=== PATIENT | male | born 1985 | race Caucasian/White ===

== ENCOUNTER 2022-01-11 21:08 | Outpatient (REF) | payer BC, SELFPAY | END 2022-01-11 21:09 | disposition home or self-care (01) | LOC: LBN 21:08 | PROVIDERS: Visit Provider Nurse Practitioner Family | DX: J02.9 Acute pharyngitis, unspecified (principal) | CPT/HCPCS: 87077; 87070 ==

== ENCOUNTER 2022-02-07 17:02 | Outpatient (REF) | payer BC, SELFPAY | END 2022-02-07 17:03 | disposition home or self-care (01) | LOC: LBN 17:02 | PROVIDERS: Visit Provider Physician Assistant | DX: J02.9 Acute pharyngitis, unspecified (principal) | CPT/HCPCS: 87070 ==

== ENCOUNTER 2023-10-16 22:08 | Outpatient (REF) | payer BC, SELFPAY ==
[2023-10-16 21:50] LABS: Hemoglobin A1C 5.6 % (<5.7)
[2023-10-16 22:01] LABS: ALT 52 U/L (16-63); AST 21 U/L (15-37); Albumin 4.3 g/dL (3.4-5.0); Alkaline Phosphatase 68 U/L (46-116); Anion Gap 6.9 mmol/L (3-11); BUN 13 mg/dL (7-18); Bilirubin, Total 0.63 mg/dL (0.2-1.0); CO2 32.1 mmol/L (21.0-32.0); Calcium 9.5 mg/dL (8.5-10.1); Calculated LDL 89 mg/dL (<100); Chloride 103 mmol/L (98-107); Cholesterol 151 mg/dL (<200); Glucose 94 mg/dL (74-106); HDL Cholesterol 40 mg/dL (40-60); Potassium 3.8 mmol/L (3.5-5.1); Sodium 142 mmol/L (136-145); Total Protein 7.3 g/dL (6.4-8.2); Triglyceride 111 mg/dL (<150)
[2023-10-19 15:57] LABS: Lipoprotein (a) 241 nmol/L (<75)
== END 2023-10-16 22:09 | disposition home or self-care (01) ==
LOC: NCHCN 22:08
PROVIDERS: Visit Provider Family Medicine
DX: R73.03 Prediabetes (principal); E78.5 Hyperlipidemia, unspecified
CPT/HCPCS: 80053; 80061; 83695; 83036

== ENCOUNTER 2024-01-11 13:01 | Outpatient (REF) | payer BC, SELFPAY ==
[2024-01-11 15:31] LABS: LDL CHOLESTEROL 65 mg/dL (<100)
== END 2024-01-11 13:02 | disposition home or self-care (01) ==
LOC: NCHCN 13:01
PROVIDERS: Visit Provider Family Medicine
DX: E78.5 Hyperlipidemia, unspecified (principal)
CPT/HCPCS: 83721

== ENCOUNTER 2024-10-07 19:57 | Outpatient (REF) | payer BC, SELFPAY ==
[2024-10-07 20:40] LABS: ALT 54 U/L (16-63); AST 25 U/L (15-37); Albumin 4.3 g/dL (3.4-5.0); Alkaline Phosphatase 63 U/L (46-116); Anion Gap 8.9 mmol/L (3-11); BUN 13 mg/dL (7-18); Bilirubin, Total 0.5 mg/dL (0.2-1.0); CO2 29.1 mmol/L (21.0-32.0); Calcium 9.4 mg/dL (8.5-10.1); Calculated LDL 61 mg/dL (<100); Chloride 104 mmol/L (98-107); Cholesterol 127 mg/dL (<200); Creatine Kinase 129 U/L (39-308); Estimated GFR 87.57 (mL/min/1.73m2); Glucose 100 mg/dL (74-106); HDL Cholesterol 35 mg/dL (>or=40); Potassium 4.2 mmol/L (3.5-5.1); Sodium 142 mmol/L (136-145); Total Protein 7.0 g/dL (6.4-8.2); Triglyceride 157 mg/dL (<150)
[2024-10-07 20:48] LABS: Hemoglobin A1C 5.4 % (<5.7)
== END 2024-10-07 19:58 | disposition home or self-care (01) ==
LOC: NCHCN 19:57
PROVIDERS: Visit Provider Family Medicine
DX: E78.5 Hyperlipidemia, unspecified (principal); M79.10 Myalgia, unspecified site; R73.03 Prediabetes
CPT/HCPCS: 80053; 80061; 82550; 83036